=== PATIENT | female | born 1960 | race Caucasian/White ===

== ENCOUNTER 2018-08-17 17:47 | Emergency (ER) | payer BC ==
[~2018-08-17] VITALS: Ht 167.6 cm; Wt 81.8 kg
--- NOTE | 2018-08-17 18:23 | REP ---
Clinical: Trauma. Fall. Technique: AP, lateral, bilateral oblique views of the left ankle. Findings: Significant lateral swelling consist with inversion injury. Degenerative changes are noted primarily at the involving the lateral malleolus and distal fibular tip. A very subtle nondisplaced fracture cannot be excluded. Ankle mortise appears intact. Medial malleolus appears intact. Impression: Swelling primarily over the lateral malleolus. Degenerative changes are identified and subtle nondisplaced fracture at the distal fibula cannot be excluded. Electronically Signed by Evin Roland MD 08/17/2018 06:15 P
[2018-08-17] MEDS ORDERED: MULTTAB12 PO (18:44)
[2018-08-17] MEDS ORDERED: vitamin d PO (18:44)
[2018-08-17 19:29] VITALS: BP 148/79
== END 2018-08-17 19:29 | disposition home or self-care (01) ==
LOC: M ED 17:47
DX: S93.402A Sprain of unspecified ligament of left ankle, initial encounter (principal); X50.9XXA Other and unspecified overexertion or strenuous movements or postures, initial encounter; Y92.89 Other specified places as the place of occurrence of the external cause